=== PATIENT | male | born 1975 | race Caucasian/White ===

== ENCOUNTER → 2022-07-25 09:45 | Outpatient (BNVA) | payer OTHER, SELFPAY | PROVIDERS: Family Provider Nurse Practitioner Family; PCP Nurse Practitioner Family; Visit Provider Nurse Practitioner Family | DX: S49.90XA Unspecified injury of shoulder and upper arm, unspecified arm, initial encounter (principal); Y99.0 Civilian activity done for income or pay; X50.3XXA Overexertion from repetitive movements, initial encounter | CPT/HCPCS: 80307 ==

== ENCOUNTER 2022-09-19 15:57 | Emergency (ER) | payer SELFPAY ==
[2022-09-19 16:18] VITALS: BP 147/94; PULSE 81; RESP 16; TEMP 36.7; O2SAT 98; BMI 25.2
--- NOTE | 2022-09-19 17:39 | ED_ITS ---
HPI - Extremity Problem General: Chief complaint: Extremity Injury, Upper Stated complaint: Right shoulder hurts Time Seen by Provider: 09/19/22 17:10 Source: patient Mode of arrival: ambulatory Limitations: no limitations History of Present Illness: Patient is a nice 46-year-old male here for evaluation of his right shoulder pain. Patient states he initially injured the shoulder approximately a month ago however looking at previous documentations he had seen Worker's Comp. mid-July for shoulder pain. Patient has tried resting the shoulder, was placed on light duties at work, and anti-inflam matories but still continues to have fairly significant discomfort. He has no other injuries or complaints at this time. MD Complaint: joint pain Onset (ago): week(s) Pain Consistency: constant Location: right and upper extremity (shoulder) Radiation: none Relieving factors: immobilization and other (he does state NSAIDS help temporarily) Exacerbating factors: range of motion Associated symptoms: Reports no associated symptoms; Deny chest pain Review of Systems Card: Denies: chest pain Resp: Denies: dyspnea GI: Denies: abdominal pain Musc: Reports: joint pain (R shoulder) and limited range of motion; Denies: neck pain, back pain, extremity pain, extremity swelling or joint swelling Neuro: Denies: headache(s), numbness in extremities, weakness in extremities or sensory changes Physical Exam Const: COMMON NORMALS: no acute distress, average body habitus, patient orient ed x3, no limitations, healthy appearing, alert and well nourished GENERAL APPEARANCE: cooperative ORIENTATION/CONSCIOUSNESS: Yes awake, Yes oriented to person, Yes oriented to place and Yes oriented to time Neck/C-Spine: COMMON NORMALS: full ROM GENERAL: Yes normal visual inspection CERVICAL SPINE: Yes cervical ROM normal, No Cervical spine tenderness, No Paracervical muscle tenderness, No Paracervical spasm and No Trapezius muscle tenderness Chest: COMMONS NORMALS: normal inspection of the chest and normal palpation of entire chest wall Back/Pelvis: COMMON NORMALS: thoracic and lumbar spine normal to inspection, no thoracic nor lumbar tenderness and thoraco-lumbar ROM normal Extremity: COMMON NORMALS: normal to inspection and capillary refill normal GENERAL: Yes normal exam except as noted RIGHT UPPER EXTREMITY: Yes shoulder joint (anterior glenohumeral joint line pain) Right shoulder: Yes Right shoulder joint ROM exam (limited flexion/abduction past 90 deg and IR/ER) and Yes Right shoulder joint neurovascular exam (normal) Neuro: COMMON NORMALS: patient oriented x3, moves all extremities, no focal motor deficits and no sensory deficits noted SENSORIUM/ORIENTATION: Yes alert, Yes oriented to person, Yes oriented to place and Yes oriented to time Course Vital Signs: Vital signs: Vital Signs Temperature 98.0 F 09/19/22 16:18 Pulse Rate 81 09/19/22 16:18 Respiratory Rate 16 09/19/22 16:18 Blood Pressure 147/94 09/19/22 16:18 Pulse Oximetry 98 09/19/22 16:18 Oxygen Delivery Me thod 09/19/22 16:18 MDM - Extremity (Nontraumatic) Medical Decision Making Given his work history and chronic overuse I would be concerned for a possible labral tear. This is a workers comp injury and he is already followed up with Worker's Comp. 3 times for this injury. Ultimately he is going to have to continue to follow-up with them. I think physical therapy and/or MRI could be indicated given the length of patient's discomfort and failure to improve with conservative treatments. Discharge Plan Discharge Patient Disposition: Home Clinical Impression: Pain in right shoulder Qualifiers: Chronicity: acute Qualified Code(s): M25.511 - Pain in right shoulder Condition: Stable Prescriptions: New Medrol (Frankie) 4 mg tablets,dose pack See Rx Instructions .ROUTE .COMPLEX Qty: 21 0RF Rx Instructions: orally per package directions Continued diclofenac potassium 50 mg tablet 50 mg PO TID PRN (Reason: pain) Qty: 30 1RF No Action diclofenac sodium [Voltaren Arthritis Pain] 1 % gel 2 g topical QID Qty: 100 0RF Rx Instructions: apply to area of pain Discharge Orders: Discharge ED (Routine); Ordered 09/19/22 Ordered By: Leda Mortensen Referrals: Bernardo Oropeza FNP [Primary Care Provider] - Coding Level of Care Code ED Supervisor Accounts Receivable for Cortney Castaneda
== END 2022-09-19 17:45 | disposition home or self-care (01) ==
PROVIDERS: Emergency Provider Physician Assistant; PCP Nurse Practitioner Family
DX: M25.511 Pain in right shoulder (principal)
CPT/HCPCS: 99283

== ENCOUNTER 2024-06-29 05:59 | Emergency (ER) | payer BC, SELFPAY ==
[2024-06-29 06:05] VITALS: BP 157/108; PULSE 73; RESP 18; TEMP 36.5; O2SAT 99; BMI 24.3
--- NOTE | 2024-06-29 06:09 | W.ED.DENTAL ---
HPI - Dental/Oral General: Chief complaint: Dental/Oral Stated complaint: Tooth/Mouth pain Time Seen by Provider: 06/29/24 06:02 History of Present Illness: 48-year-old male presents emergency room complaining of dental pain and swelling. States about once a month he gets some swelling in the left lower jaw he has not seen a dentist for this or had any other evaluation. He denies any fever sweats or chills. He has not had any drainage. He has pretty significant deterioration of his teeth particularly in the left mandibular region. Moderate amount of pain patient has been using [id number] anti-inflammatories with no significant relief. Patient denies using chewing tobacco Associated symptoms: Denies fever(s) or odynophagia Related Data Previous Rx's Medication Instructions Recorded amoxicillin 875 mg-potassium 1 tab PO BID #20 tabs 06/29/24 clavulanate 125 mg tablet diclofenac sodium 75 mg 75 mg PO Q12H PRN pain #20 tabs 06/29/24 tablet,delayed release Allergies Allergy/AdvReac Type Severity Reaction Status Date / Time No Known Allergies Allergy Verified 08/29/22 15:47 Review of Systems Const: Denies: fever(s) or chills ENMT: Reports: dental pain; Denies: throat pain, odynophagia or hoarseness Card: Denies: chest pain Resp: Denies: dyspnea GI: Denies: abdominal pain : Denies: dysuria, urinary frequency or urinary urgency Musc: Denies: neck pain or back pain Skin/Breast: Denies: rash Physical Exam Const: COMMON NORMALS: no acute distress GENERAL APPEARANCE: cooperative and comfortable ORIENTATION/CONSCIOUSNESS: Yes awake, Yes oriented to person, Yes oriented to place and Yes oriented to time HENMT: COMMON NORMALS: normocephalic, atraumatic and hearing grossly normal bilaterally HEAD & SCALP: normocephalic and atraumatic OTHER: Moderate swelling of the left mandible medial portion. No involvement of the soft tissue there is no induration or redness. On examination mouth very poor dentition of the [place] of the all the molars on the left mandibular region. 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 and some necrotic tissue there does not appear to be a purulent mass there is no active drainage Resp: COMMON NORMALS: normal respiratory effort, No retractions, No use of accessory muscles and clear to auscultation bilaterally AUSCULTATION: clear to auscultation bilaterally Cardio: COMMON NORMALS: regular rate, regular rhythm and No murmurs present (Cardio) RATE: regular rate RHYTHM: regular rhythm Extremity: COMMON NORMALS: normal to inspection, capillary refill normal, no clubbing, cyanosis or edema, no calf tenderness and no pedal edema Neuro: SENSORIUM/ORIENTATION: Yes oriented to person, Yes oriented to place and Yes oriented to time Skin: COMMON NORMALS: no rashes or lesions noted GENERAL SKIN EXAM: no rashes or lesions noted Course Vital Signs: Vital signs: Vital Signs Temperature 97.7 F 06/29/24 06:05 Pulse Rate 68 06/29/24 08:36 Respiratory Rate 16 06/29/24 06:23 Blood Pressure 129/74 06/29/24 08:36 Pulse Oximetry 99 06/29/24 08:36 Oxygen Delivery Me thod Room Air 06/29/24 06:23 MDM - Dental/Oral Medical Decision Making CT does not show any signs of osteomyelitis or is a dental abscess in place. Was concerned whether recurrence patient had leukoplakia appearance he might have an oropharyngeal cancer of some kind there is nothing of that appearance on the CT. There does appear to be a small abscess present. Not seeing anything that looks immediately and sizable drainable. Will place patient on oral antibiotics strongly encouraged him to follow-up with dentist as soon as possible. Return if this changes. Medical Records I reviewed the patient's medical records. Lab Data I reviewed the patient's lab results. 06/29/24 06:29 06/29/24 06:[address] 06/29/24 06:22 IMPRESSION: 1. Extensive dental disease. Recommend dental referral for further evaluation. 2. Small abscess adjacent to the mandible on the left anteriorly. Adjacent soft tissue findings suggest associated cellulitis. Laboratory Results WBC 14.90 10^3/uL (3.29-11.43) H 06/29/24 06:29 RBC 5.22 10^6/uL (3.85-5.65) 06/29/24 06:29 Hgb 16.40 g/dL (11.27-16.99) 06/29/24 06:29 Hct 47.6 % (37-53) 06/29/24 06:29 MCV 91.2 fl (82-101) 06/29/24 06: MCH 31.4 pg (27-33) 06/29/24 06: MCHC 34.5 g/dL (30-55) 06/29/24 06: RDW 13.3 % (12.1-15.1) 06/29/24 06: Plt Count 263 10^3/cmm (157-399) 06/29/24 06: MPV 9.9 fL (7.4-10.4) 06/29/24 06:29 Neut % (Auto) 75.0 % 06/29/24 06: Lymph % (Auto) 14.6 % 06/29/24 06: Fountain % (Auto) 6.0 % 06/29/24 06: Eos % (Auto) 1.9 % 06/29/24 06: Baso % (Auto) 0.9 % 06/29/24 06: Neut # (Auto) 11.18 10^3/uL (1.8-7.7) H 06/29/24 06:29 Lymph # (Auto) 2.2 10^3/uL (0.8-4.8) 06/29/24 06:29 Fountain # (Auto) 0.9 10^3/uL (0.2-0.9) 06/29/24 06:29 Eos # (Auto) 0.3 10^3/uL (0.0-0.8) 06/29/24 06: Baso # (Auto) 0.1 10^3/uL (0.0-0.1) 06/29/24 06:29 Nucleated RBC % (auto) 0 % 06/29/24 06: Nucleated RBCs # 0.0 /100WBC 06/29/24 06:29 Sodium 132 mmol/L (136-145) L 06/29/24 06:29 Potassium 3.7 mmol/L (3.5-5.1) 06/29/24 06: Chloride 101 mmol/L (98-107) 06/29/24 06:29 Carbon Dioxide 21 mmol/L (22-29) L 06/29/24 06:29 Anion Gap 13.7 (5-19) 06/29/24 06:29 BUN 14 mg/dL (6-20) 06/29/24 06:29 Creatinine 1.1 mg/dL (0.7-1.2) 06/29/24 06:29 GFR Calculation 72.1 mL/min (90-130) L 06/29/24 06:29 Glucose 90 mg/dL (65-115) 06/29/24 06:29 Calculated Osmolality 274 mOsm/kg (285-295) L 06/29/24 06:29 Calcium 9.4 mg/dL (8.5-10.5) 06/29/24 06:29 Total Bilirubin 0.4 mg/dL (0.15-1.2) 06/29/24 06:29 AST 23 U/L (0-40) 06/29/24 06:29 ALT 17 U/L (0-41) 06/29/24 06:29 Alkaline Phosphatase 86 U/L (40-130) 06/29/24 06:29 C-Reactive Protein 5.5 mg/L (0.0-4.9) H 06/29/24 06:29 Total Protein 7.4 g/dL (6.6-8.7) 06/29/24 06:29 Albumin 4.5 g/dL (3.5-5.2) 06/29/24 06:29 Globulin 2.9 g/dL (1.3-4.6) 06/29/24 06:29 All radiology interpretation(s) finalized by discharge Discharge Plan Discharge Patient Disposition: Home Clinical Impression: Dental abscess Condition: Stable Prescriptions: New amoxicillin-pot clavulanate 875-125 mg tablet 1 tab PO BID Qty: 20 0RF diclofenac sodium 75 mg tablet,delayed release (DR/EC) 75 mg PO Q12H PRN (Reason: pain) Qty: 20 0RF Discharge Orders: Discharge ED (Routine); Ordered 06/29/24 Ordered By: Jasper Lai Referrals: Ziyad Oropeza FNP [Primary Care Provider] - Discharge Diet: Soft Mechanical Discharge Activity: Increase activity as tolerated Patient Instructions: Opioid Safety, Pain Management Activity Restrictions/Additional Instructions: Thank you for choosing [facility] for your healthcare needs today. It is very important that you follow up as instructed or that you return to the Emergency Department should you have concerns or if your condition changes or worsens in any way. You are seen in the emergency room for swelling along the left side of your jaw. CT shows there is a dental abscess present is not drainable at this time. Recommend starting oral antibiotics. This will not completely resolve the problem but will merely help to control it. If it worsens significantly he should return to the emergency room. You should see a dentist for definitive care for this issue or will continue to recur Coding Level of Care Code ED Reservation Sales Agent for Cortney Castaneda
--- NOTE | 2024-06-29 06:22 | CTR_ITS ---
PROCEDURE INFORMATION: Exam: CT Maxillofacial With Contrast; Mandible Exam date and time: 06/29/2024 6:38 AM Age: 48 years old Clinical indication: Mass, lump, or swelling; Other: Mandible; Jaw pain; Patient HX: C/O dental pain with left mandibular swelling; Additional info: L mandibular swelling TECHNIQUE: Imaging protocol: Computed tomography maxillofacial with intravenous contrast. Exam focused on the mandible. Radiation optimization: All CT scans at this facility use at least one of these dose optimization techniques: automated exposure control; mA and/or kV adjustment per patient size (includes targeted exams where dose is matched to clinical indication); or iterative reconstruction. Contrast material: OMNI 350; Contrast volume: 100 ml; Contrast route: INTRAVENOUS (IV); COMPARISON: MR cervical spin wo con* [id number] 12/23/2017 2:06 PM RADIATION DOSE METRICS: Total DLP (mGy-cm): 1224.18 FINDINGS: Paranasal sinuses: There is minimal mucosal thickening involving the paranasal sinuses. No air-fluid levels are identified. Bones: No fractures identified. No blastic or lytic bony lesions noted. Soft tissues: There is a small rim enhancing fluid collection adjacent to the anterior mandible on the left measuring 8 mm AP dimension by 3 mm transverse dimension by 8 mm craniocaudad dimension. Findings most compatible with a small abscess. There is edema/inflammatory fat stranding within the soft tissues superficial to the mandible likely representing cellulitis. Teeth: There are dental caries with apical lucencies involving multiple maxillary and mandibular teeth bilaterally. CT/CT facial bones w con [id number] IMPRESSION: 1. Extensive dental disease. Recommend dental referral for further evaluation. 2. Small abscess adjacent to the mandible on the left anteriorly. Adjacent soft tissue findings suggest associated cellulitis.
[2024-06-29 06:23] VITALS: PULSE 75; RESP 16; O2SAT 98
[2024-06-29] MEDS: iohexol 350 mg/mL 500 mL Btl (per mL) IV (06:41)
[2024-06-29 06:44] LABS: Basophils # 0.1 10^3/uL (0.0-0.1); Basophils % 0.9 %; Eosinophils # 0.3 10^3/uL (0.0-0.8); Eosinophils % 1.9 %; Hematocrit 47.6 % (37-53); Lymphocytes # 2.2 10^3/uL (0.8-4.8); Lymphocytes % 14.6 %; Mean Corpuscular HGB Conc 34.5 g/dL (30-55); Mean Corpuscular Hemoglobin 31.4 pg (27-33); Mean Corpuscular Volume 91.2 fl (82-101); Mean Platelet Volume 9.9 fL (7.4-10.4); Monocytes # 0.9 10^3/uL (0.2-0.9); Neutrophils # 11.18 10^3/uL (1.8-7.7); Nucleated Red Blood Cells % 0 %; Platelet Count 263 10^3/cmm (157-399); Red Blood Count 5.22 10^6/uL (3.85-5.65); Red Cell Distribution Width 13.3 % (12.1-15.1)
[2024-06-29 07:02] LABS: Alanine Aminotransferase 17 U/L (0-41); Albumin Level 4.5 g/dL (3.5-5.2); Alkaline Phosphatase 86 U/L (40-130); Anion Gap 13.7 (5-19); Aspartate Amino Transferase 23 U/L (0-40); Blood Urea Nitrogen 14 mg/dL (6-20); C Reactive Protein 5.5 mg/L (0.0-4.9); Calcium 9.4 mg/dL (8.5-10.5); Carbon Dioxide 21 mmol/L (22-29); Chloride 101 mmol/L (98-107); Creatinine Clr Calc Pharmacy 83.1639; Globulin 2.9 g/dL (1.3-4.6); Glomerular Filtration Rate 72.1 mL/min (90-130); Glucose 90 mg/dL (65-115); Osmolality Calculated 274 mOsm/kg (285-295); Potassium 3.7 mmol/L (3.5-5.1); Sodium 132 mmol/L (136-145); Total Bilirubin 0.4 mg/dL (0.15-1.2); Total Protein 7.4 g/dL (6.6-8.7)
[2024-06-29] MEDS: acetaminophen 325 mg Tablet 650 MG PO (07:57)
[2024-06-29] MEDS: ketorolac 30 mg/mL INJ IVP (07:58)
[2024-06-29 08:36] VITALS: BP 129/74; PULSE 68; O2SAT 99
== END 2024-06-29 08:39 | disposition home or self-care (01) ==
PROVIDERS: Emergency Provider Family Medicine; PCP Nurse Practitioner Family
DX: K04.7 Periapical abscess without sinus (principal)
CPT/HCPCS: 36415; 70487; 80053; 85025; 86140; 96374; 99285; J1885

== ENCOUNTER 2025-08-18 23:34 | Emergency (ER) | payer BC, SELFPAY ==
[2025-08-18 23:36] VITALS: BP 146/85; PULSE 77; RESP 17; TEMP 36.4; O2SAT 92; BMI 23.6
--- OUTSIDE RECORDS SUMMARY | 2025-08-18 23:39 | XMS_ITS | Clinical Summary ---
Author Organization [facility] Address [facility] [place] [address] Care Team Providers Care Roofer Assistant Name Role Phone Unavailable Primary Care Provider Unavailabl e Allergies No known active allergies Medications No known medications Active Problems No known active problems Family History Medical History Relation Name Comments Cancer Father pancreatic canc er Heart Disease Father Unknown Maternal Grandfather Unknown Maternal Grandmother Heart Disease Mother Other Mother brain aneurysm Unknown Paternal Grandfather Unknown Paternal Grandmother Breast Cancer Neg Hx Colon Cancer Neg Hx Relation Name Status Comments Father Maternal Grandfather Maternal Grandmother Mother Paternal Grandfather Paternal Grandmother Social History Tobacco Use Types Packs/Day Years Used Date Smoking Tobacco: Every Day Cigarettes 0.5 20 Smokeless Tobacco: Never Tobacco Cessation:Ready to Q uit: Yes; Counseling Given: Yes Alcohol Use Standard Drinks/Week Comments No 0 (1 standard drink = 0.6 oz pur e alcohol) Sex and Gender Information Value Date Recorded Sex Assigned at Not on file 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 Gender Identity Not on file Sexual Orientation Not on file Occupation Industry Job Start Date Job End Date Not on file Not on file Not on file Not on file Last Filed Vital Signs Vital Sign Reading Time Taken Comments Blood Pressure 156/103 12/01/2020 6:21 PM CDT Pulse 80 05/01/2020 6:18 PM CDT Temperature 36.2 C (97.2 F) 12/01/2020 6:21 PM CDT Respiratory Rate 18 12/01/2020 6:21 PM CDT Oxygen Saturation 100% 12/01/2020 6:21 PM CDT Inhaled Oxygen Concentration - - Weight 72.6 kg (160 lb) 12/01/2020 6:21 PM CDT Height 172.7 cm (5' 8 ) 12/01/2020 6:21 PM CDT Body Mass Index 24.33 12/01/2020 6:21 PM CDT Plan of Treatment Health Maintenance Due Date Last Done Comments DTAP/TDAP/TD VACCINES (1 - Tdap) 1996 HEPATITIS B VACCINES (1 of 3 - 19+ 3-dose series) 09/10 COLORECTAL SCREENING 2022 Colorectal Cancer Screening 2022 FIT-DNA Q 3 years 2022 FIT/FOBT Q 1 year 2022 Flex Sig/CT Colonography Q 5 years 2022 INFLUENZA VACCINE (#1) 2025 [place] [id number]
--- OUTSIDE RECORDS SUMMARY | 2025-08-18 23:39 | XMS_ITS | Encounter Summary ---
Author Organization [facility] Address [address] [place] [address] Care Team Providers Care Gas Compressor Turbine Operator Name Role Phone Unavailable Primary Care Provider Unavailabl e Encounter Details Date Type Department Care Team (Late st Contact Info) Description 11/18/2017 Ancillary Orders [facility] Admitting [address] [place] [id number] Sandip Paz, KRYSTIN Onofre [address] [place] [address] Cervical nerve root compression Social History Tobacco Use Types Packs/Day Years Used Date Smoking Tobacco: Every Day Cigarettes 0.5 15 Smokeless Tobacco: Never Alcohol Use Standard Drinks/Week Comments No 0 (1 standard drink = 0.6 oz pur e alcohol) Sex and Gender Information Value Date Recorded Sex Assigned at Not on file Legal Sex Male 3:57 AM ASSOCIATE DEAN Gender Identity Not on file Sexual Orientation Not on file Occupation Industry Job Start Date Job End Date Not on file Not on file Not on file Not on file documented as of this encounter Plan of Treatment Not on file documented as of this encounter Results * XR CERVICAL SPINE 2 OR 3 VIEWS (11/18/2017 5:10 PM CDT) Anatomical Region Laterality Modality Spine Computed Radiogr aphy 11/18/2017 5:10 PM CDT Impressions 11/19/2017 8:32 AM CDT IMPRESSION: Please see below. Exam: XR CERVICAL SPINE 2 OR 3 VIEWS Date/Time of Exam: 11/18/2017 5:10 PM Reason For Exam: Cervical nerve root compression. Findings: The cervical spine is normal in sagittal alignment. Disc space heights are well-maintained. Minimal spondylosis is present at the C5-6 level. The posterior elements are unremarkable. IMPRESSION: Minimal bony DDD changes. Narrative Procedure Note Wale Domingo MD - 11/19/2017 IMPRESSION: Please see below. Exam: XR CERVICAL SPINE 2 OR 3 VIEWS Date/Time of Exam: 11/18/2017 5:10 PM Reason For Exam: Cervical nerve root compression. Findings: The cervical spine is normal in sagittal alignment. Disc space heights are well-maintained. Minimal spondylosis is present at the C5-6 level. The posterior elements are unremarkable. IMPRESSION: Minimal bony DDD changes. us Ziyad Oropeza Sr., BRAKE REPAIR SUPERVISOR DIAGNOSTIC IMAGIN G ORDERABLES Final Result * XR THORACIC SPINE 3 VW (11/18/2017 5:10 PM CDT) Anatomical Region Laterality Modality Spine Computed Radiogr aphy 11/18/2017 5:10 PM CDT Impressions 11/19/2017 8:33 AM CDT IMPRESSION: Please see below. Exam: XR THORACIC SPINE 3 VW Date/Time of Exam: 11/18/2017 5:10 PM Reason For Exam: Cervical nerve root compression. Findings: Mild scoliosis may be present. Moderate disc space narrowing and spondylosis are seen at the T9-T10 level on the right. No lytic or blastic lesions are seen. Paraspinal soft tissues appear normal. Mild postural kyphosis is present. IMPRESSION: Possible mild scoliosis. Moderate bony DDD changes at T9-10. Narrative Procedure Note Wale Domingo MD - 11/19/2017 IMPRESSION: Please see below. Exam: XR THORACIC SPINE 3 VW Date/Time of Exam: 11/18/2017 5:10 PM Reason For Exam: Cervical nerve root compression. Findings: Mild scoliosis may be present. Moderate disc space narrowing and spondylosis are seen at the T9-T10 level on the right. No lytic or blastic lesions are seen. Paraspinal soft tissues appear normal. Mild postural kyphosis is present. IMPRESSION: Possible mild scoliosis. Moderate bony DDD changes at T9-10. us Ziyad Oropeza Sr., BRAKE REPAIR SUPERVISOR DIAGNOSTIC IMAGIN G ORDERABLES Final Result documented in this encounter Visit Diagnoses Diagnosis Cervical nerve root compression Brachial neuritis or radiculitis nos Cervical nerve root compression Brachial neuritis or radiculitis nos Cervical nerve root compression Brachial neuritis or radiculitis nos documented in this encounter
--- OUTSIDE RECORDS SUMMARY | 2025-08-18 23:39 | XMS_ITS | Encounter Summary ---
Author Organization [facility] Address [address] 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
--- OUTSIDE RECORDS SUMMARY | 2025-08-18 23:39 | XMS_ITS | Encounter Summary ---
Author Organization [facility] Address [address] [place] [address] Care Team Providers Care Instant Potato Processor Name Role Phone Sotero Seth MD Primary Care Provider [phone] Encounter Details Date Type Department Care Team (Late st Contact Info) Description 06/19/2003 Emergency [facility] Emergency Department [address] [place] [address] Galdino Garcia MD NO ADDRESS ON FILE INSECT BITE NEC (Primary Dx) Social History Tobacco Use Types Packs/Day Years Used Date Smoking Tobacco: Never Assessed Sex and Gender Information Value Date Recorded Sex Assigned at Not on file 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 Gender Identity Not on file Sexual Orientation Not on file documented as of this encounter Plan of Treatment Not on file documented as of this encounter Visit Diagnoses Diagnosis Other, multiple, and unspecified sites, insect bite, nonvenomous, without mention of infection(919.4)- Primary Other, multiple, and unspecified sites, insect bite, nonvenomous, without mention of infection documented in this encounter Care Teams Instant Potato Processor Relationship Specialty Start Date End Date Sotero Seth MD [address] [facility] [facility] [address] [place] [address] PCP - General Family Practice 12/26/16 11/07/17 documented as of this encounter
--- OUTSIDE RECORDS SUMMARY | 2025-08-18 23:39 | XMS_ITS | Encounter Summary ---
Author Organization [facility] Address [address] [place] [address] Care Team Providers Care Seasoning Mixer Name Role Phone Unavailable Primary Care Provider Unavailabl e Encounter Details Date Type Department Care Team (Late st Contact Info) Description 10/12/2021 Digital Self COVID-1 [address] [facility] ABSTRACTION Provider, Abstract NO ADDRESS ON FILE Social History Tobacco Use Types Packs/Day Years Used Date Smoking Tobacco: Every Day Cigarettes Smokeless Tobacco: Never Alcohol Use Standard Drinks/Week Comments No 0 (1 standard drink = 0.6 oz pur e alcohol) Sex and Gender Information Value Date Recorded Sex Assigned at Not on file Legal Sex Male 11:01 AM GARMENT SUPERVISOR Gender Identity Not on file Sexual Orientation Not on file COVID-19 Exposure Response Date Recorded In the last month, have you been in contact with someone who was confirmed or suspected to have Coronavirus / COVID-19? No / Unsure 10/09/2021 8:29 AM GARMENT SUPERVISOR documented as of this encounter Plan of Treatment Not on file documented as of this encounter Visit Diagnoses Not on filedocumented in this encounter
--- OUTSIDE RECORDS SUMMARY | 2025-08-18 23:39 | XMS_ITS | Encounter Summary ---
Author Organization [facility] Address [address] [place] [address] Care Team Providers Care Nonfarm Animal Caretaker Name Role Phone Unavailable Primary Care Provider Unavailabl e Encounter Details Date Type Department Care Team (Late st Contact Info) Description 08/17/2025 External Device Data [place] ABSTRACTION Provider, Abstract NO ADDRESS ON FILE Social History Tobacco Use Types Packs/Day Years Used Date Smoking Tobacco: Every Day Cigarettes Smokeless Tobacco: Never Alcohol Use Standard Drinks/Week Comments No 0 (1 standard drink = 0.6 oz pur e alcohol) Food Insecurity Answer Date Recorded Do you find you are eating l ess than you should because you can t pay for food? No 07/16/2025 Transportation Needs Answer Date Record ed Have you gone without health care because you didn t have a way to get there? Or worry about transportation for future doctor visits, picking table worker medication, etc.? No 2024 Housing Stability Answer Date Recorded Do you worry you won t have a steady place to sleep or struggle to pay rent or mortgage? No 07/16/2025 Utility Needs Answer Date Recorded Do you have difficulty payin g for utility costs (electric, water or gas bills)? No 07/16/2025 Medication Needs Answer Date Recorded Have you skipped taking medi cation due to cost or worry you can t afford new medications? No 07/16/2025 Feeling Safe Answer Date Recorded Are you in a relationship wi th someone who hurts you emotionally and/or physically? 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
--- OUTSIDE RECORDS SUMMARY | 2025-08-18 23:39 | XMS_ITS | Encounter Summary ---
Author Organization [facility] Address 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 No / Unsure 10/09/2021 8:29 AM ACID DUMPER documented as of this encounter Plan of Treatment Not on file documented as of this encounter Visit Diagnoses Not on filedocumented in this encounter
--- OUTSIDE RECORDS SUMMARY | 2025-08-18 23:39 | XMS_ITS | Encounter Summary ---
Author Organization [facility] Address [address] [place] [address] Care Team Providers Care Supervisor Train Operations Name Role Phone Unavailable Primary Care Provider [...] worry about transportation for future doctor visits, supervisor picking crew medication, etc.? 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
--- OUTSIDE RECORDS SUMMARY | 2025-08-18 23:39 | XMS_ITS | Clinical Summary ---
Author Organization 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/2023 Medications No known medications Active Problems Problem Noted Date Diagnosed Date Elevated blood pressure read ing without diagnosis of hypertension 06/25/2025 Crushing injury of scrotum and testis, initial e ncounter 06/25/2025 Biceps tendinopathy, left 06/25/2025 Non-recurrent bilateral ingu inal hernia without obstruction or gangrene 06/25/2025 Encounters Date Type Department Care Team Description 08/17/2025 External Device Data STL ABSTRACTION Provider, Abstract 08/17/2025 External Device Data STL ABSTRACTION Provider, Abstract 08/17/2025 External Device Data ST[facility] ABSTRACTION Provider, Abstract 07/20/2025 External Device Data STL ABSTRACTION Provider, Abstract 07/20/2025 External Device Data STL ABSTRACTION Provider, Abstract 07/20/2025 External Device Data STL ABSTRACTION Provider, Abstract 07/16/2025 4:19 PM ITINERANT TEACHER ASSISTANT - 07/16/2025 7:43 PM ITINERANT TEACHER ASSISTANT Emergency [facility] Emergency Medicine [address] [place] [phone] Win Moon MD Pain of left upper extremity (Primary Dx); Biceps tendinopathy, left Discharge Disposition: Home or Self Care 07/16/2025 Travel 06/25/2025 11:32 AM CDT - 06/25/2025 1:41 PM CDT Emergency [facility] Emergency Medicine [address] [place] [phone] Oz Painting MD Biceps tendinopathy, left (Primary Dx); Crushing injury of scrotum and testis, initial encounter; Elevated blood pressure reading without diagnosis of hypertension; Non-recurrent bilateral inguinal hernia without obstruction or gangrene Discharge Disposition: Home or Self Care 06/25/2025 Travel from Last 3 Months Family History Medical History Relation Name Comments [...] Tobacco: Every Day Cigarettes Smokeless Tobacco: Never Tobacco Cessation:Ready to Q uit: Not Asked; Counseling Given: Not Answered Alcohol Use Standard Drinks/Week Comments No 0 [...] worry about transportation for future doctor visits, picker / packer medication, etc.? No 2024 Housing Stability Answer [...] on file Legal Sex Male 11:01 AM ITINERANT TEACHER ASSISTANT Gender Identity Not on file Sexual Orientation Not on file Last Filed Vital Signs Vital Sign Reading Time Taken Comments Blood Pressure 160/58 07/16/2025 7:00 PM ITINERANT TEACHER ASSISTANT Pulse 62 07/16/2025 7:00 PM ITINERANT TEACHER ASSISTANT Temperature 36.5 C (97.7 F) 07/16/2025 4:23 PM ITINERANT TEACHER ASSISTANT Respiratory Rate 16 07/16/2025 7:00 PM ITINERANT TEACHER ASSISTANT Oxygen Saturation 99% 07/16/2025 7:00 PM ITINERANT TEACHER ASSISTANT Inhaled Oxygen Concentration - - Weight 70.7 kg (155 lb 12.8 oz) 07/16/2025 4:23 PM ITINERANT TEACHER ASSISTANT Height 172.7 cm (5' 8 ) 07/16/2025 4:23 PM ITINERANT TEACHER ASSISTANT Body Mass Index 23.69 07/16/2025 4:23 PM ITINERANT TEACHER ASSISTANT Plan of Treatment Health Maintenance Due Date Last Done Comments DTAP/TDAP/TD VACCINES (1 - Tdap) 1996 HEPATITIS B VACCINES (1 of 3 - 19+ 3-dose series) 09/10 COLORECTAL SCREENING 2022 Colorectal Cancer Screening 2022 FIT-DNA Q 3 years 2022 FIT/FOBT Q 1 year 2022 Flex Sig/CT Colonography Q 5 years 2022 INFLUENZA VACCINE (#1) 2025 Procedures Procedure Name Priority Date/Time Associated Diagnosis Comments CT UPR EXT W CONTRAST LEFT Stat 07/16/2025 6:27 PM ITINERANT TEACHER ASSISTANT COMPREHENSIVE METABOLIC PANEL Stat 07/16/2025 5:35 PM ITINERANT TEACHER ASSISTANT CBC WITH DIFFERENTIAL Stat 07/16/2025 5:35 PM ITINERANT TEACHER ASSISTANT CK Stat 06/25/2025 12:30 PM CDT BRAIN NATRIURETIC PEPTIDE, BNP OR PROBNP Stat 06/25/2025 12:30 PM CDT COMPREHENSIVE METABOLIC PANEL Stat 06/25/2025 12:30 PM CDT CBC WITH DIFFERENTIAL Stat 06/25/2025 12:30 PM CDT URINALYSIS W/REFLEX MICROSCOPIC Stat 06/25/2025 11:38 AM CDT from Last 3 Months Results * CT UPR EXT W CONTRAST LEFT (07/16/2025 6:27 PM ITINERANT TEACHER ASSISTANT) Anatomical Region Laterality Modality Upper Extremity Computed Tomogra phy 07/16/2025 7:01 PM ITINERANT TEACHER ASSISTANT Impressions 07/16/2025 7:01 PM ITINERANT TEACHER ASSISTANT IMPRESSION: Please see below. Exam: CT UPR EXT W CONTRAST LEFT Date/Time of Exam: 07/16/2025 6:27 PM Reason For Exam: Torn bicep. Diagnosis: See Reason for Exam. Technique: CT of the left upper extremity was performed following the administration of intravenous contrast. Contrast: 100 mL Isovue-300 Findings: There are no comparisons. No soft tissue swelling is noted. No fluid collections are appreciated. No soft tissue gas or radiopaque foreign body is noted. There is no evidence for fracture or dislocation. No periosteal reaction is noted. No lytic or blastic lesion is noted. No significant arthritic change is appreciated. No adenopathy is noted. The brachial artery and radial and ulnar arteries are grossly patent. IMPRESSION: Narrative Procedure Note Olivia Pablo MD - 07/16/2025 IMPRESSION: Please see below. Exam: CT UPR EXT W CONTRAST LEFT Date/Time of Exam: 07/16/2025 6:27 PM Reason For Exam: Torn bicep. Diagnosis: See Reason for Exam. Technique: CT of the left upper extremity was performed following the administration of intravenous contrast. Contrast: 100 mL Isovue-300 Findings: There are no comparisons. No soft tissue swelling is noted. No fluid collections are appreciated. No soft tissue gas or radiopaque foreign body is noted. There is no evidence for fracture or dislocation. No periosteal reaction is noted. No lytic or blastic lesion is noted. No significant arthritic change is appreciated. No adenopathy is noted. The brachial artery and radial and ulnar arteries are grossly patent. IMPRESSION: Win Moon MD CT ORDERABLES Final Result * (ABNORMAL) CBC WITH DIFFERENTIAL (07/16/2025 5:35 PM ITINERANT TEACHER ASSISTANT) Only the most recent of2 resultswithin the time period is included. WBC 10.9(H) 4.2 - 9.1 K/uL 07/16/2025 5:42 PM ITINERANT TEACHER ASSISTANT [facility] RBC 5.10 4.63 - 6.08 M/uL 07/16/2025 5:42 PM [facility] HEMOGLOBIN 15.9 13.7 - 17.5 g/dL 07/16/2025 5:42 PM [facility] HEMATOCRIT 45.6 40.1 - 51.0 % 07/16/2025 5:42 PM [facility] MCV 89.4 79.0 - 92.2 fL 07/16/2025 5:42 PM [facility] MCH 31.2 25.7 - 32.2 pg 07/16/2025 5:42 PM [facility] MCHC 34.9 32.3 - 36.5 g/dL 07/16/2025 5:42 PM [facility] RDW 13.4 11.0 - 14.5 % 07/16/2025 5:42 PM [facility] RDW-STDEV 43.8 36.9 - 56.9 fL 07/16/2025 5:42 PM [facility] PLATELETS 293 130 - 400 K/uL 07/16/2025 5:42 PM [facility] MPV 9.7(L) 10.0 - 14.8 fL 07/16/2025 5:42 PM [facility] NEUTROPHILS 60 34 - 68 % 07/16/2025 5:42 PM [facility] LYMPHOCYTES 27 22 - 53 % 07/16/2025 5:42 PM [facility] MONOCYTES 7 5 - 12 % 07/16/2025 5:42 PM [facility] EOSINOPHILS 5 1 - 7 % 07/16/2025 5:42 PM [facility] BASOPHILS 2(H) 0 - 1 % 07/16/2025 5:42 PM [facility] IMMATURE GRANULOCYTES 0 % 07/16/2025 5:42 PM [facility] NEUTROPHIL ABSOLUTE 6.54(H) 1.78 - 5.38 K/uL 07/16/2025 5:42 PM [facility] LYMPHOCYTE ABSOLUTE 2.87 1.20 - 3.40 K/uL 07/16/2025 5:42 PM [facility] MONOCYTE ABSOLUTE 0.73 0.30 - 0.82 K/uL 07/16/2025 5:42 PM [facility] EOSINOPHIL ABSOLUTE 0.53 0.04 - 0.54 K/uL 07/16/2025 5:42 PM [facility] BASOPHILS ABSOLUTE 0.16(H) 0.01 - 0.08 K/uL 07/16/2025 5:42 PM [facility] IMMATURE GRANULOCYTES ABSOLUTE 0.02 K/uL 07/16/2025 5:42 PM [facility] Blood Venipuncture / Unknown 07/16/2025 5:35 PM ITINERANT TEACHER ASSISTANT 07/16/2025 5:38 PM ITINERANT TEACHER ASSISTANT us Win Moon MD HEMATOLOGY ORDERABLES Final Result [facility] CLIA # [id number] [address] [place] [address] * COMPREHENSIVE METABOLIC PANEL (07/16/2025 5:35 PM ITINERANT TEACHER ASSISTANT) Only the most recent of2 resultswithin the time period is included. SODIUM 140 136 - 145 mmol/L 07/16/2025 6:01 PM [facility] POTASSIUM 4.3 3.5 - 5.1 mmol/L 07/16/2025 6:01 PM [facility] CHLORIDE 103 98 - 107 mmol/L 07/16/2025 6:01 PM [facility] CO2 25 22 - 29 mmol/L 07/16/2025 6:01 PM [facility] CALCIUM 9.6 8.6 - 10.0 mg/dL 07/16/2025 6:01 PM [facility] BUN 13 6 - 20 mg/dL 07/16/2025 6:01 PM [facility] CREATININE 1.01 0.67 - 1.17 mg/dL 07/16/2025 6:01 PM [facility] GLUCOSE 86 74 - 99 mg/dL 07/16/2025 6:01 PM [facility] TOTAL PROTEIN 7.4 6.6 - 8.7 g/dL 07/16/2025 6:01 PM [facility] ALBUMIN 4.5 3.5 - 5.2 g/dL 07/16/2025 6:01 PM [facility] BILIRUBIN TOTAL 0.4 0.0 - 1.2 mg/dL 07/16/2025 6:01 PM [facility] ALKALINE PHOSPHATASE 88 40 - 129 U/L 07/16/2025 6:01 PM [facility] AST 30 0 - 50 U/L 07/16/2025 6:01 PM [facility] ALT 24 0 - 50 U/L 07/16/2025 6:01 PM [facility] GFR >60 >=60 mL/min/1.7 3 sq meter 07/16/2025 6:01 PM [facility] Comment:eGFR calculated with 2020 CKD-EPI equation. Vegetarian diet, extremely high or low muscle mass, and may affect results. Cystatin C with Glomerular Filtration Rate is a suitable alternative for these patients. ANION GAP 12 5 - 20 mmol/L 07/16/2025 6:01 PM [facility] Blood Venipuncture / Unknown 07/16/2025 5:35 PM ITINERANT TEACHER ASSISTANT 07/16/2025 5:38 PM ITINERANT TEACHER ASSISTANT Win Moon MD CHEMISTRY ORDERABLES Final Result [facility] CLIA # [id number] [address] [place] [id number] * BRAIN NATRIURETIC PEPTIDE, BNP OR PROBNP (06/25/2025 12:30 PM CDT) PROBNP, N TERMINAL 78 0 - 125 pg/mL 06/25/2025 12:55 PM CDT [facility] Comment: INTERPRETIVE COMMENT based on diagnosis: Diagnostic NT pro-BNP cutoffs for Heart Failure in the absence of renal failure is suggested for the following ranges <75 years: <125 pg/mL >=75 years: <450 pg/mL Exclusionary rule out cut-point for Acute Decompensated Heart Failure(ADHF) All ages: <300 pg/mL Diagnostic NT pro-BNP cutoffs for Acute Decompensated Heart Failure(ADHF) in the absence of renal failure is suggested for the following ages <50 years: > 450 pg/mL 50-75 years: > 900 pg/mL >75 years: >1800 pg/mL Blood Venipuncture / Unknown 06/25/2025 12:30 PM CDT 06/25/2025 12:36 PM CDT us Oz Painting MD CHEMISTRY ORDERABLES Final Resu lt Performing Organization Address [facility]/ZIP [id number] [address] [place] [phone] * CK (06/25/2025 12:30 PM CDT) CK 76 39 - 308 U/L 06/25/2025 12:55 PM CDT [facility] Blood Venipuncture / Unknown 06/25/2025 12:30 PM CDT 06/25/2025 12:36 PM CDT us Oz Painting MD CHEMISTRY ORDERABLES Final Resu lt Performing Organization Address [facility] Co de Phone Number [facility] CLIA # [id number] [address] [place] [phone] * (ABNORMAL) URINALYSIS WITH REFLEX MICROSCOPIC (06/25/2025 11:38 AM CDT) COLOR UA Yellow Pale to Dark Yellow 06/25/2025 11:59 AM CDT [facility] CLARITY UA Clear Clear 06/25/2025 11:59 AM CDT [facility] SPECIFIC GRAVITY UA 1.025 1.003 - 1.035 06/25/2025 11:59 AM CDT [facility] PH UA 6.0 5.0 - 8.0 06/25/2025 11:59 AM CDT [facility] LEUKOCYTE ESTERASE UA Negative Negative 06/25/2025 11:59 AM CDT [facility] NITRITE UA Negative Negative 06/25/2025 11:59 AM CDT [facility] PROTEIN UA Negative Negative 06/25/2025 11:59 AM CDT [facility] GLUCOSE UA Negative Negative 06/25/2025 11:59 AM CDT [facility] KETONES UA Negative Negative 06/25/2025 11:59 AM CDT [facility] UROBILINOGEN UA 2.0(A) <2.0 mg/dL 11:59 AM CDT [facility] BILIRUBIN UA 1+(A) Negative 06/25/2025 11:59 AM CDT [facility] BLOOD UA Negative Negative 06/25/2025 11:59 AM T [facility] Urine URINE SPECIMEN OBTAINED BY CLEAN CATCH PROCEDURE / Unknown Collection / Unknown 06/25/2025 11:38 AM CDT 06/25/2025 11:57 AM CDT Oz Painting MD URINE ORDERABLES Final Result Performing Organization Address City/State/[facility] Co de Phone Number [facility] CLIA # [id number] [address] [place] [address] [phone] from Last 3 Months Insurance [facility] BC [facility]
--- OUTSIDE RECORDS SUMMARY | 2025-08-18 23:39 | XMS_ITS | Encounter Summary ---
Author Organization [facility] Address [address] [place] [address] Care Team Providers Care Senior Customer Service Representative Name Role Phone Unavailable Primary Care Provider [...] worry about transportation for future doctor visits, merchandise pickup/receiving associate medication, etc.? 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
[2025-08-19] VITALS (25 sets, daily range): BP systolic 126–162; BP diastolic 82–118; PULSE 68; O2SAT 94–100
--- NOTE | 2025-08-19 01:36 | ED_ITS ---
HPI - Back Pain/Injury 2 General: Chief Complaint: Back Pain/Injury Stated Complaint: threw back out Time Seen by Provider: 08/19/25 01:08 History of Present Illness: 49yo M w/cc of R sided low back pain cristóbal t started today after picking up a laudry basket. As patient was bending over to pick it up, he started experiencing severe pain in his right low back with radiation to his right thigh. Patient states he has chronic low back pain. 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 Patient denies fever, IVDU, chest pain, shortness of breath, abdominal pain, nausea, vomiting, dysuria, hematuria though he does state that he has had difficulty urinating since this morning. Patient denies loss of bowel control. He states that this morning, the pain was so severe he urinated on himself but has not had any events since. He reports that moving his R leg causes quite a bit of pain. No paresthesia, numbness or tingling. Patient denies any falls or trauma. Patient has taken Tylenol for pain without significant relief. Related Data Previous Rx's ?Medication ?Instructions ?Recorded amoxicillin 875 mg-potassium 1 tab PO BID #20 tabs clavulanate 125 mg tablet diclofenac sodium 75 mg 75 mg PO Q12H PRN pain #20 t abs 06/29/24 tablet,delayed release methocarbamol 500 mg tablet 1,000 mg (2 x 500 mg) PO T ID PRN 08/19/25 muscle pain and spasm #30 tabs naproxen 500 mg tablet 500 mg PO BID PRN pain 14 da ys #28 08/19/25 tabs Allergies Allergy/AdvReac Type Severity Reaction Status Date / Time No Known Allergies Allergy Verified 08/29/22 15:47 Physical Exam 2 Narrative: EXAM NARRATIVE: Vitals were reviewed. Patient is alert, oriented and hemodynamically stable. EOMI. normal respiratory effort, clear lung sounds bilaterally without wheezing or crackles. Normal heart sounds. No pain with palpation of the C or T-spine midline, patient does have some midline discomfort of the lumbar spine and sacrum but also exquisite pain of the right lumbar paraspinal musculature and gluteal muscle. Negative straight leg raise test bilaterally, no pain with flexion or external rotation of either hip, no pain with flexion of the knees. No motor or sensory deficits. Course 2 Vital Signs: Vital signs: Vital Signs Temperature 97.5 F L 08/18/25 23:36 Pulse Rate 68 08/19/25 01:10 Respiratory Rate 17 08/18/25 23:36 Blood Pressure 151/84 08/19/25 02:40 Pulse Oximetry 99 08/19/25 02:40 Oxygen Delivery Me thod Room Air 08/19/25 01:10 MDM - Back Pain/Injury Medical Decision Making 49-year-old male with a chief complaint of right low back pain that is radiating to his right left thigh after attempting to supervisor opening and picking a laundry basket. Differential diagnosis includes, is limited to, muscle spasm, lumbar back strain/sprain, colopathy, herniated disc, cauda equina, degenerative disc disease, urinary tract infection, kidney stone, other. On exam he centrically stable nontoxic-appearing. He was evaluate CBC, BMP, ESR, CRP, bladder scan, UA and treated with IV Dilaudid, IV Zofran and IV Toradol. On reassessment, patient's pain is improved and he is able to move around quite a bit more comfortably. He is afebrile, has a normal white blood cell count, normal ESR and CRP; I have low suspicion for more insidious process such as discitis, abscess or infectious process. Patient has normal kidney function, UA is not consistent with infection and there is no hematuria. Patient wishes to go home at this time, stating that he is feeling better. I suspect low back strain and/or piriformis syndrome. Patient was counseled on supportive care at home, given return precautions and discharged in stable condition with recommendation for outpatient follow-up with primary care nurse or doctor. Labs 08/19/25 02:16 08/19/25 02:16 Laboratory Results WBC 9.53 10^3/uL (3.29-11.43) 08/19/25 02:16 RBC 5.25 10^6/uL (3.85-5.65) 08/19/25 02:16 Hgb 16.40 g/dL (11.27-16.99) 08/19/25 02:16 Hct 48.2 % (37-53) 08/19/25 02:16 MCV 91.8 fl (82-101) 08/19/25 02:16 MCH 31.2 pg (27-33) 08/19/25 02:16 MCHC 34.0 g/dL (30-55) 08/19/25 02:16 RDW 13.3 % (12.1-15.1) 08/19/25 02:16 Plt Count 247 10^3/cmm (157-399) 08/19/25 02:16 MPV 10.0 fL (7.4-10.4) 08/19/25 02:16 Neut % (Auto) 66.4 % 08/19/25 02:16 Lymph % (Auto) 21.7 % 08/19/25 02:16 [place] % (Auto) 6.9 % 08/19/25 02:16 Eos % (Auto) 3.6 % 08/19/25 02:16 Baso % (Auto) 1.0 % 08/19/25 02:16 Neut # (Auto) 6.32 10^3/uL (1.8-7.7) 08/19/25 02:16 Lymph # (Auto) 2.1 10^3/uL (0.8-4.8) 08/19/25 02:16 Wayne # (Auto) 0.7 10^3/uL (0.2-0.9) 08/19/25 02:16 Eos # (Auto) 0.3 10^3/uL (0.0-0.8) 08/19/25 02:16 Baso # (Auto) 0.1 10^3/uL (0.0-0.1) 08/19/25 02:16 Nucleated RBC % (auto) 0 % 08/19/25 02:16 Nucleated RBCs # 0.0 /100WBC 08/19/25 02:16 ESR < 1 mm/hr (0-10) 08/19/25 02:16 Sodium 138 mmol/L (136-145) 08/19/25 02:16 Potassium 4.6 mmol/L (3.5-5.1) 08/19/25 02:16 Chloride 104 mmol/L (98-107) 08/19/25 02:16 Carbon Dioxide 27 mmol/L (22-29) 08/19/25 02:16 Anion Gap 11.6 (5-19) 08/19/25 02:16 BUN 13 mg/dL (6-20) 08/19/25 02:16 Creatinine 1.0 mg/dL (0.7-1.2) 08/19/25 02:16 GFR Calculation 80.1 mL/min (90-130) L 08/19/25 02:16 Glucose 77 mg/dL (65-115) 08/19/25 02:16 Calculated Osmolality 285 mOsm/kg (285-295) 08/19/25 02:16 Calcium 9.3 mg/dL (8.5-10.5) 08/19/25 02:16 C-Reactive Protein 4.4 mg/L (0.0-4.9) 08/19/25 02:16 Urine Color Yellow (Yellow) 08/19/25 02:38 Urine Appearance Clear (CLEAR) 08/19/25 02:38 Urine pH 6.5 (5-7) 08/19/25 02:38 Ur Specific [place] 1.015 (1.005-1.030) 08/19/25 02:38 Urine Protein Negative (Negative) 08/19/25 02:38 Urine Glucose (UA) Negative (Normal) 08/19/25 02:38 Urine Ketones Negative (Negative) 08/19/25 02:38 Urine Blood Negative (Negative) 08/19/25 02:38 Urine Nitrate Negative (Negative) 08/19/25 02:38 Urine Bilirubin Negative (Negative) 08/19/25 02:38 Urine Urobilinogen 1.0 mg/dL (Negative) 08/19/25 02:38 Ur Leukocyte Esterase Negative (Negative) 08/19/25 02:38 Urine RBC 0-2 /hpf (0-2) 08/19/25 02:38 Urine WBC 0-5 /hpf (0-5) 08/19/25 02:38 Ur Squamous Epith Cells 0-5 /hpf (0-5) 08/19/25 02:38 Amorphous Sediment Not Reportable 08/19/25 02:38 Urine Bacteria None seen /hpf (NONE) 08/19/25 02:38 Hyaline Casts 0-4 /lpf H 08/19/25 02:38 No radiology studies performed this visit Discharge Plan Discharge Patient Disposition: Home Clinical Impression: Strain of lumbar region, Piriformis syndrome of right side Condition: Stable Prescriptions: New methocarbamol 500 mg tablet 1,000 mg PO TID PRN (Reason: muscle pain and spasm) Qty: 30 0RF naproxen 500 mg tablet 500 mg PO BID PRN (Reason: pain) 14 Days Qty: 28 0RF No Action amoxicillin-pot clavulanate 875-125 mg tablet 1 tab PO BID Qty: 20 0RF diclofenac sodium 75 mg tablet,delayed release (DR/EC) 75 mg PO Q12H PRN (Reason: pain) Qty: 20 0RF Discharge Orders: Discharge ED (Routine); Ordered 08/19/25 Ordered By: Hyun Portillo Referrals: Ziyad Oropeza FNP [Primary Care Provider, Family Practice] Patient Instructions: Opioid Safety, Pain Management, Patient Portal & Nicko Instructions, Piriformis Syndrome (ED), Acute Low Back Pain (ED) Print Language: Japanese Coding Level of Care Code ED Artist Color Separation for Cortney Castaneda
[2025-08-19] MEDS: HYDROmorphone 0.5 MG/0.5 ML INJ 1 MG IVP (02:14)
[2025-08-19 02:32] LABS: Hematocrit 48.2 % (37-53); Hemoglobin 16.40 g/dL (11.27-16.99); Mean Corpuscular HGB Conc 34.0 g/dL (30-55); Mean Corpuscular Hemoglobin 31.2 pg (27-33); Mean Corpuscular Volume 91.8 fl (82-101); Nucleated Red Blood Cells % 0 %; Platelet Count 247 10^3/cmm (157-399); Red Blood Count 5.25 10^6/uL (3.85-5.65); White Blood Count 9.53 10^3/uL (3.29-11.43)
[2025-08-19 02:48] LABS: Anion Gap 11.6 (5-19); Blood Urea Nitrogen 13 mg/dL (6-20); Calcium 9.3 mg/dL (8.5-10.5); Carbon Dioxide 27 mmol/L (22-29); Chloride 104 mmol/L (98-107); Glucose 77 mg/dL (65-115); Osmolality Calculated 285 mOsm/kg (285-295); Potassium 4.6 mmol/L (3.5-5.1); Sodium 138 mmol/L (136-145)
[2025-08-19 02:58] LABS: Glucose Urine UA Negative (Normal); Nitrate Urine Negative (Negative); Specific Gravity, Urine 1.015 (1.005-1.030)
[2025-08-19 03:03] LABS: Add Urine Microscopic? YES
== END 2025-08-19 04:02 | disposition home or self-care (01) ==
PROVIDERS: Emergency Provider Emergency Medicine; PCP Nurse Practitioner Family
DX: S39.012A Strain of muscle, fascia and tendon of lower back, initial encounter (principal); G57.01 Lesion of sciatic nerve, right lower limb; X58.XXXA Exposure to other specified factors, initial encounter
CPT/HCPCS: 51798; 80048; 81001; 85025; 85651; 86140; 96374; 96375; 99284; J1171; J1885; J9999